=== PATIENT | female | born 1995 | race Caucasian/White ===

== ENCOUNTER 2022-01-30 07:52 | Day surgery (SDC) | payer BC ==
[2022-01-30 08:01] LABS: Absolute Lymphocytes (CBC) 1.9 K/uL (0.7-4.9); Hematocrit 37.3 % (36.0-45.0); Lymphocytes % 28.5 % (15.3-44.8); MCV 80.1 fL (80-100); MPV 8.5 fL (7.6-11.3); RBC Red Blood Cell Count 4.66 M/uL (3.86-4.86)
[2022-01-30] MEDS ORDERED: Ringers Lactate 1,000 ML IV ONE (08:18)
[2022-01-30] MEDS ORDERED: CEFOXITIN SODIUM 1 GM/VIAL ONE (08:18)
[2022-01-30 08:21] LABS: Albumin 3.8 g/dL (3.4-5.0); Bilirubin Direct 0.2 mg/dL (0-0.2); Bilirubin Total 0.6 mg/dL (0.2-1.0); Potassium 3.6 mmol/L (3.5-5.1); Protein, Total 7.5 g/dL (6.4-8.2)
[2022-01-30] MEDS ORDERED: ACETAMINOPHEN 500 MG TAB ONE (08:45)
[2022-01-30] MEDS ORDERED: CELECOXIB 100 MG CAPSULE ONE (08:45)
[2022-01-30] MEDS ORDERED: propofoL 200 MG/20 ML VIAL IV ONE (09:19)
[2022-01-30] MEDS ORDERED: LIDOCAINE 1% MPF 5 ML VIAL ONE (09:20)
[2022-01-30] MEDS ORDERED: FENTANYL CITR 100 MCG/2 ML ONE (09:20)
[2022-01-30] MEDS ORDERED: ROCURONIUM 50 MG/5 ML VIAL IV ONE (09:20)
[2022-01-30] MEDS ORDERED: ONDANSETRON 4 MG/2 ML VIAL ONE (09:20)
[2022-01-30] MEDS ORDERED: MIDAZOLAM HCL 2 MG/2 ML INJ ONE (09:20)
[2022-01-30] MEDS ORDERED: dexAMETHasone 10 MG/ML VIAL ONE (10:59)
[2022-01-30] MEDS ORDERED: Phenylephrine HCl 10 MG/ML 1 ML VIAL ONE (11:07)
--- NOTE | 2022-01-30 11:15 | P.BOP ---
Preoperative diagnosis: acute cholecystitis, sympt. cholelithiasis, choledocholithiasis, s/pERCP Postoperative diagnosis: same Primary procedure: Laparoscopic cholecystectomy [employer]: BROOKLYN WESTBROOK ([employer]) Estimated blood loss: <10cc Specimen: hernia sac Findings: as above Anesthesia: General Complications: None Transferred to: Recovery Room Condition: Good
[2022-01-30] MEDS ORDERED: CODEINE 30MG/APAP 300MG TAB PO ONE (11:26)
[2022-01-30] MEDS ORDERED: NEOSTIGMINE 1 MG/ML -10 ML VIAL ONE (11:26)
[2022-01-30] MEDS ORDERED: GLYCOPYRROLATE 0.2 MG/ML SYR ONE (11:26)
[2022-01-30] MEDS ORDERED: KETOROLAC 30 MG/ML INJ ONE (11:34)
[2022-01-30] MEDS ORDERED: CODEINE 30MG/APAP 300MG TAB ONE (12:23)
[2022-01-30 12:26] VITALS: BP 95/57; O2SAT 99
== END 2022-01-30 13:05 | disposition home or self-care (01) ==
LOC: OR 07:52
PROVIDERS: ATTEND Surgery
PROC: 0FT44ZZ Resection of Gallbladder, Percutaneous Endoscopic Approach (ICD-10-PCS; principal; 2022-01-30 11:15)
DX: K80.10 Calculus of gallbladder with chronic cholecystitis without obstruction (principal); Z98.890 Other specified postprocedural states
CPT/HCPCS: 85025; 80048; 36415; 82150; 81025; 80076; 88304; 83690; 47562; J2704; J2710; J2370; J2250; J3010; J1100; J7120; J0694; J2405